=== PATIENT | female | born 1945 | race Caucasian/White ===

== ENCOUNTER → 2017-09-13 | Outpatient (CLI) | payer BC ==
[~2017-09-13] MED LIST: AMLO-96 PO; AMOX-559 PO; ASPI-1471 PO; DOCU-416 PO; GLUC1TAB13 PO; LEVO-3 PO; METO50TA19 PO; METR-1 PO; MV W1TAB4 PO; PER PO; POTA99TA6 PO; SIMV-54 PO; VIT1CAPS34 PO; [UNRECOGNIZED DRUG - CODE] PO
--- NOTE | 2017-09-13 16:38 | RADIOLOGY IMAGING REPORT ---
[place] [facility] [place] NAME: VENESSA HOYOS : [id number] MR: [id number] V: [id number] EXAM DATE: ORDERING PHYSICIAN: DAYTON ABEL TECHNOLOGIST: Chiquita Huffman PROCEDURE:BILATERAL DIGITAL SCREENING MAMMOGRAM WITH CAD ASSISTED INTERPRETATION & 3D TOMOSYNTHESIS COMPARISON:Prior mammograms 08/23/16, 03/02/15, 07/16/12, 05/31/11. INDICATIONS:SCREENING FINDINGS: A small amount of fibroglandular tissue is seen throughout the breasts. The parenchymal pattern has remained stable allowing for difference in mammographic technique & patient positioning. There is no evidence of malignant appearing mass, malignant appearing calcifications or other secondary sign of malignancy in either breast. DIAGNOSTIC CATEGORY 1--NEGATIVE. RECOMMENDATIONS: ROUTINE MAMMOGRAM AND CLINICAL EVALUATION. IMPRESSION: BIRADS 1: Negative No significant abnormality is seen. Dictated by: Yudelka Thomason M.D. on 09/13/2017 at 16:16 Transcribed by: ANY on 09/13/2017 at 16:28 Approved by: Yudelka Thomason M.D. on 09/13/2017 at 16:37 [facility]
== END ==
LOC: MAMO 01:40
PROVIDERS: ATTEND Student in an Organized Health Care Education/Training Program
DX: Z12.31 Encounter for screening mammogram for malignant neoplasm of breast (principal)
CPT/HCPCS: 77063; 77067

== ENCOUNTER → 2018-04-23 | Outpatient (CLI) | payer BC, MEDICARE ==
[~2018-04-23] MED LIST changes: +AMLO-111 PO; -AMLO-96 PO
[2018-04-23 09:55] LABS: PLATELET COUNT, AUTOMATED 255 K/uL (150-450)
--- NOTE | 2018-04-23 09:55 | EKG ---
FACILITY: [facility] PATIENT NAME: VENESSA HOYOS : [id number] MR: [id number] V: [id number] EXAM DATE: ORDERING PHYSICIAN: LY SETHI TECHNOLOGIST: BRIDGET Test Reason : PRE OP Blood Pressure : / mmHG Vent. Rate : 058 BPM Atrial Rate : 058 BPM P-R Int : 188 ms QRS Dur : 074 ms QT Int : 434 ms P-R-T Axes : 048 016 043 degrees QTc Int : 426 ms Sinus bradycardia Otherwise normal ECG When compared with ECG of 16-JUL-2013 00:21, No significant change was found Confirmed by NICHOLAS DAVIDSON ([id number]) on 04/23/2018 6:03:12 PM Referred By: JOSSIE Confirmed By:NICHOLAS DAVIDSON
== END ==
LOC: LAB 09:31
PROVIDERS: ATTEND Orthopaedic Surgery
DX: Z01.812 Encounter for preprocedural laboratory examination (principal); Z01.810 Encounter for preprocedural cardiovascular examination; M19.071 Primary osteoarthritis, right ankle and foot; R00.1 Bradycardia, unspecified
CPT/HCPCS: 36415; 82040; 82247; 82310; 82374; 82435; 82565; 82947; 84075; 84132; 84155; 84295; 84443; 84450; 84460; 84520; 85025; 93005

== ENCOUNTER 2018-05-31 00:34 | Inpatient (IN) | payer MEDICARE, BC ==
[2018-05-31] VITALS (22 sets, daily range): BP systolic 112–151; BP diastolic 58–82
[~2018-05-31] VITALS: Ht 167.6 cm; Wt 101.2 kg
[~2018-05-31 00:34] MED LIST changes: +SIMV-49 PO
[2018-05-31] MEDS ORDERED: PREGABALIN 75 MG CAPSULE PO ONE (06:15)
[2018-05-31] MEDS ORDERED: NORMOSOL R SOLN(*) 1000 ML BAG 1,000 ML IV PRN (06:15)
[2018-05-31] MEDS ORDERED: LIDOCAINE/SOD BICARB 8.4% SYR ID ONE (06:15)
[2018-05-31] MEDS ORDERED: ACETAMINOPHEN 500 MG TAB PO ONE (06:15)
[2018-05-31] MEDS ORDERED: ROPIVACAINE 0.2% 400 MG/200ML 250 ML CONINFUS ONE (06:15)
[2018-05-31] MEDS ORDERED: FAMOTIDINE 20 MG TAB PO ONE (06:15)
[2018-05-31] MEDS ORDERED: ceFAZolin(*) 2GM/D5W 50ML 50 ML IVPB ONE (06:15)
[2018-05-31] MEDS ORDERED: MIDAZOLAM 2 MG/2 ML VIAL IVP PRN (06:15)
[2018-05-31] MEDS ORDERED: EPINEPHrine HCL 1 MG/ML AMP ONE (06:31)
[2018-05-31] MEDS ORDERED: DEXAMETHASONE SOD PHOS 10MG/ML ONE (06:31)
[2018-05-31] MEDS ORDERED: ROPIVACAINE 0.5% 20 ML VIAL ONE (06:53)
[2018-05-31] MEDS ORDERED: SCOPOLAMINE 1.5 MG PATCH TD ONE (06:55)
[2018-05-31] MEDS ORDERED: fentaNYL CITR 250 MCG/5 ML AMP ONE (06:57)
[2018-05-31] MEDS ORDERED: LIDOCAINE 2% IV 100 MG/5ML SYR ONE (06:57)
[2018-05-31] MEDS ORDERED: PROPOFOL EMUL(*) 10MG/ML 20 ML 20 ML ONE (06:57)
[2018-05-31] MEDS ORDERED: LIDOCAINE MPF 1% 5 ML VIAL ONE (06:58)
[2018-05-31] MEDS ORDERED: DEXAMETHASONE SOD 4 MG/ML VIAL ONE (07:26)
[2018-05-31] MEDS ORDERED: ONDANSETRON 4 MG/2 ML VIAL ONE ×2 (07:27→10:46)
[2018-05-31] MEDS ORDERED: KETAMINE HCL 200 MG/20 ML MDV ONE ×2 (07:28→08:42)
[2018-05-31] MEDS ORDERED: fentaNYL CITR 100 MCG/2 ML AMP ONE (09:20)
--- NOTE | 2018-05-31 10:06 | RADIOLOGY IMAGING REPORT ---
FACILITY: [facility] PATIENT NAME: Dbebie Damian : 1945 MR: [id number] V: [id number] EXAM DATE: ORDERING PHYSICIAN: LY SETHI TECHNOLOGIST: Location: [facility] Patient: Debbie Damian : 1945 Visit/Account:[id number] Date of Sevice: 05/31/2018 EXAMINATION: OR fluoroscopy films right ankle 4 views HISTORY: Right total ankle replacement. COMPARISON: None. FLUOROSCOPY TIME: 1:48 minutes. DOSE: DAP was 0.3881 Gy*cm2. FINDINGS: 4 fluoroscopic images of the right ankle are obtained intraoperatively. There is placemen t of a total ankle arthroplasty which is well-positioned on these images. IMPRESSION: Right total ankle arthroplasty in progress. Please see the performing physician's notes for full det ails. Report Dictated By: Funmi Rudd MD at 05/31/2018 10:01 AM Report E-Signed By: Funmi Rudd MD at 05/31/2018 10:02 AM WSN:[id number]
[2018-05-31] MEDS ORDERED: BISACODYL 10 MG SUPP PR PRN (10:15)
[2018-05-31] MEDS ORDERED: diphenhydrAMINE 25 MG CAP PO PRN (10:15)
[2018-05-31] MEDS ORDERED: KCL/D5LR 20 MEQ/1000 ML PREMIX 1,000 ML IV PRN (10:15)
[2018-05-31] MEDS ORDERED: ONDANSETRON 4 MG/2 ML VIAL IVP PRN (10:15)
[2018-05-31] MEDS ORDERED: PROMETHAZINE 25 MG/ML 1 ML AMP IVP PRN (10:15)
[2018-05-31] MEDS ORDERED: FLUSH 10 ML SYR IVP PRN (10:15)
[2018-05-31] MEDS ORDERED: MAGNESIUM HYDROXIDE* 30ML UDCP PO PRN (10:15)
[2018-05-31] MEDS ORDERED: KETOROLAC 30 MG/ML VIAL IVP PRN (10:15)
[2018-05-31] MEDS ORDERED: ACETAMINOPHEN 500 MG TAB PO PRN (10:15)
[2018-05-31] MEDS ORDERED: MAGNESIUM CITRATE 300 ML BTL PO PRN (10:15)
--- NOTE | 2018-05-31 10:53 | OPERATIVE REPORT 1 ---
EVENT DATE: May 31, 2018 SURGEON: Jarret Tesfaye MD ANESTHESIOLOGIST: Mert Stoll MD ANESTHESIA: restaurant line cook: LISA Farris, MOTEL KEEPER PREOPERATIVE DIAGNOSIS Severe degenerative arthritis of the ankle. POSTOPERATIVE DIAGNOSIS Severe degenerative arthritis of the ankle. PROCEDURE PERFORMED Total ankle replacement on the right side. ESTIMATED BLOOD LOSS Minimal. TOURNIQUET TIME Less than 2 hours. DESCRIPTION OF PROCEDURE The patient was brought to the operating room and placed in supine position. A bump placed under the right hip. The right lower extremity was prepped and draped in the normal sterile fashion using Prevail. A sterile stockinette, sterile U-drape, and sterile extremity drape placed over the lower extremity. Stockinette was incised right above the knee and held with Coban. Esmarch was then used to exsanguinate the lower extremity. The tourniquet was turned up to 300 mmHg. An incision was made directly midline just lateral to the anterior tibialis tendon. Skin was incised with the blade and taken down to the subcutaneous tissue. The subcutaneous tissue was bluntly dissected down to the retinaculum. The retinaculum was sharply dissected and then blunt dissection was taken down to the bone to move the neurovascular bundle off to the lateral aspect. Once that was moved off laterally and the anterior tibialis tendon was protected medially, we were able to get to the bone. We did subperiosteal dissection medially and laterally. Once that was done, we then removed the osteophytes on the anterior tibialis and the neck of the talus. At this point, we used an osteotome to transect the anterior tibial rim to get down to distal plafond of the tibia. Once I had that done, we then made an incision just over the tibial tubercle, bluntly dissected down to the bone. We placed a pin all the way through the tibia and then we used our alignment guide, placed the alignment guide on that proximal tibial pin, brought it all the way down to the tibial plafond. I placed another pin through the medial hole into the tibia. Once we had that lined up, we brought fluoroscopy in. We moved from a zero up to a 9 mm cut shortening the alignment kaitlyn. Once that was appropriate, fluoroscopy was used to made sure we had rotation appropriate, make sure we had enough length off the tibia taken which we thought we did. We did have to realign the varus valgus of the alignment guide, getting slightly more valgus and we had the tip a little bit more posterior alignment. Once that was done, we thought we had excellent position. We then went for sizing. We tried a 1 tibia and a zero tibia. It was right in between, so we decided to go for a zero tibia to start and then wee could always go up if we needed to. We placed the zero tibial guide on there, made sure with fluoroscopy AP and lateral that the cut was appropriate, both medially, laterally and rotationally, which it was. We pinned both medial and lateral of the zero guide, and then cut the distal tibia using a oscillating saw without any difficulty. We were able to pull the pins, pull the sizing and distal tibial guide off. I used an osteotome to remove the majority of the distal tibial cut. Once that was done, from the alignment guide we were able to place our talar pin, with the foot in neutral making sure the pin was placed in the talus in the correct position. We brought fluoroscopy in, found to have an excellent placement of the pin in relationship to the subtalar joint. Once that was done, we then placed our paddles for the distal talar cut for a zero. Once we had it in place, we brought fluoroscopy in and made the paddles were appropriate and the alignment was appropriate. We then pinned the talar cutting guide. We then used an oscillating saw to cut the talus without any difficulty. We removed the talar guide, we removed the pins, we removed the distal talus. From here, I could get back to the rest of the distal tibial cut, which I was able to remove without any difficulty. At this point, we removed the spurs of the anterior talus, even some more. We placed the anterior chamfer cut under fluoroscopy and made sure we had good position of it. When we did have positioning of it, making sure the guide line hit to the anterior tibia which was appropriate, we then pinned that anterior chamfer guide. We then drilled our anterior chamfer without any difficulty. I took of the anterior chamfer guide, and I used a rongeur to remove the remaining anterior chamfer cuts. Once that was done, we then trialed a zero tibia and a zero talus under fluoroscopy and at this point we realized that could go up on the tibia, so we then trialed a 1 tibia with a zero talus which fit more appropriately. Had good range of motion, but I though we could get some more with a Achilles tendon lengthening. We did a percutaneous Achilles tendon lengthening at this point, three holes were made on the back of the Achilles, one going medial, one going lateral, and one going medial again. From here, we gut much better range of motion and it felt like the tibial was sitting in a better position as well. We then drilled the talus, lateral chamfer guide in place. We drilled the distal tibial guides first with the large, thin drill hole. We removed the tibial trial, finished our lateral chamfer without any difficulty, removed the lateral chamfer talar guide, removed the bone over the lateral chamfer, and had excellent position. At this point, we decided to go with a 1 tibia, a 10 poly, and a zero talus of a Juve Integra total ankle. We then washed out with normal saline and then we were able to place the distal tibia and the talus in the appropriate position, checking on fluoroscopy the final positioning which was excellent, good alignment varus/valgus, rotation, and anterior and lateral. At this point, we then washed out with normal saline. We closed the retinaculum, closed the subcuticular over top using 3-0 Monocryl, and then used mat for the skin. We were able to remove all of the rest of pins in the distal tibia without any difficulty. Adaptic 4 x 4's, big bulky Weldon dressing. Patient went to recovery and no complications. COLE
[2018-05-31] MEDS ORDERED: CALC600T63 PO (12:08)
[2018-05-31] MEDS ORDERED: ASCO-191 PO (12:08)
[2018-05-31] MEDS ORDERED: CHOL100052 PO (12:08)
[2018-05-31] MEDS ORDERED: LEV125 PO (12:08)
--- NOTE | 2018-05-31 15:15 | Hospitalist Consultation ---
History of Present Illness Requesting Physician Dr. Tesfaye Reason for Consult Manage medical problems/chronic medications. Chief Complaint R ankle pain. History of Present Illness The patient is a pleasant 72 year old female with PMH significant for HTN, hypothyroidism and hyperlipidemia who presented to Dr. Tesfaye with R ankle pain. She had an ankle injury 30 years ago and felt it never healed properly. Over the years her pain worsened and the joint became unstable. She did undergo injection with Kenalog with minimal relief of her symptoms. 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 She subsequently had both knees replaced (late and early ) without any difficulty. She does not remember being on blood thinners for those surgeries but review of the records show she was placed on Coumadin postoperatively for her 2001 TKA. The patient underwent total R ankle replacement earlier today with Dr. Tesfaye. She is doing well postoperatively. History Problems: (1) History of carpal tunnel release Status: Resolved (2) History of tubal ligation Status: Resolved (3) History of total knee replacement (TKR) Status: Resolved (4) Hx of appendectomy Status: Resolved (5) Pulmonary embolism Status: Resolved (6) Degenerative joint disease of ankle, right Status: Chronic (7) Hypothyroidism Status: Chronic (8) Hyperlipidemia Status: Chronic (9) HTN (hypertension) Status: Chronic Home Meds Reported Medications Ascorbic Acid (VITAMIN C) 1,000 Mg Tablet, 2000 MG PO DAILY 05/31/18 Cholecalciferol (Vitamin D3) (VITAMIN D) 1,000 Unit Tablet, 4000 UNIT PO 05/31/18 Calcium Carbonate (CALCIUM) 600 Mg Tablet, 1200 MG PO DAILY 05/31/18 Levothyroxine Sodium (LEVOTHYROXINE SODIUM) 0.125 Mg Tab, 0.125 MG PO QDAY, TAB 05/31/18 Simvastatin (SIMVASTATIN) 20 Mg Tablet, 20 MG PO HS, TAB 05/22/18 Aspirin (ASPIR 81) 81 Mg Tablet.dr, 81 MG PO QDAY, TAB 07/15/13 Metoprolol Succinate (METOPROLOL SUCCINATE) 50 Mg Tab.er.24h, 1 TAB PO QDAY TAKE ONE TABLET BY MOUTH EVERY DAY 07/15/13 Niacin (SLO-NIACIN) 500 Mg Tablet.er, 500 MG PO DAILY 07/15/13 Glucosamine Hcl/Chondr Yo A Na (OSTEO BI-FLEX CAPLET) 1 Each Tablet, 2 EACH PO DAILY 07/15/13 Potassium Gluconate (POTASSIUM) 99 Mg Tablet, 99 MG PO DAILY 07/15/13 Vit A/Vit C/Vit E/Zinc/Copper (PRESERVISION AREDS SOFTGEL) 1 Each Capsule, 1 EACH PO BID, CAPSULE 07/15/13 Mv W-Ca/Iron/Fa/Lutein/Hrb#179 (KAYLEEN MULTI FOR WOMEN TAB) 1 Each Tablet, 1 EACH PO DAILY 07/15/13 Amlodipine Besylate (AMLODIPINE BESYLATE) 5 Mg Tablet, 1 TAB PO QDAY, TAB TAKE ONE TABLET BY MOUTH EVERY DAY 07/15/13 Discontinued Reported Medications Levothyroxine Sodium (LEVOTHYROXINE SODIUM) 100 Mcg Tablet, 125 MCG PO QDAY, TAB 05/22/18 Allergies: Coded Allergies: No Known Drug Allergies (Unverified , 07/18/13) Patient History: FH: dementia MOTHER FH: kidney failure FATHER, Hx Smoking: No Smoking Status: Never Smoker Caffeine Intake: Coffee Caffeine/Cups Per Day: 2 CCD Hx Alcohol Use: No Alcohol Used: Wine Hx Substance Use Disorder: No Review of Systems All Systems Reviewed/Normal: Yes, Except as Noted Musculoskeletal: Pain ( R ankle.) Exam Vital Signs Vital Signs Date Time Temp Pulse Resp B/P (MAP) Pulse Ox O2 Delivery O2 Flow Rate FiO2 05/31/18 12:30 150/70 (96) 05/31/18 12:15 48 96 05/31/18 11:38 Nasal Cannula 4.0 05/31/18 11:35 97.5 16 General Appearance: Alert, Awake, No Acute Distress, Afebrile Neuro: No Gross deficits Eyes: PERRLA Cardiovascular: Other (Bradycardic with soft JOANNA heard at RUSB) Respiratory: Clear to Auscultation GI: Abd Soft and Non-Tender Extremities: Warm, Perfused, Other (R lower leg bandaged. Toes pink with good capillary refill.) Integumentary: Other (R ankle bandaged) Psych: Alert & Oriented X3, Appropriate Mood & Affect Medical Decision Making Pre-Admit Course Medical Record Review: Yes Assessment and Plan Problems: (1) S/P ankle joint replacement Status: Acute Assessment & Plan: The patient is doing well postoperatively. See Dr. Tesfaye's notes for complete details regarding the surgery. Discussed patient history of PE with Dr. Tesfaye. He agrees that this patient should have some protection postoperatively for DVT prophylaxis due to previous hx of PE. She is usually on a baby ASA daily. Will have her take a regular aspirin daily for a month. (2) HTN (hypertension) Status: Chronic Assessment & Plan: Continue amlodipine and metoprolol with BP parameters. (3) Hypothyroidism Status: Chronic Assessment & Plan: Continue levothyroxine at 0.125mg daily. TSH drawn 05/30/18 was 0.69. Her dose was increased from 0.100mg in April after a TSH drawn 04/23/18 was elevated at 5.93. (4) Hyperlipidemia Status: Chronic Assessment & Plan: Continue simvastatin 40mg at HS. (5) Pulmonary embolism Status: Resolved Assessment & Plan: The patient has history of PE in 1967 after prolonged immobilization for fracture of her back. [facility] she was placed on Coumadin after her 2001 knee replacement. DVT prophylaxis is not usually warranted after ankle replacement surgery, however, due to past hx of DVT, will have her take a regular 325mg ASA daily for one month and then she can return to her usual low dose ASA 81mg daily. Time Spent on Plan of Care: < 30 min Venous Thromboembolism Antithrombotics Is Pt On Any Antithrombotics?: Yes (Aspirin 325mg daily.) Exam Sepsis Risk: No Definite Risk Problem Qualifiers (1) S/P ankle joint replacement: Laterality: right Qualified Codes: Z96.661 - Presence of right artificial ankle joint SANG POSEY MD May 31, 2018 15:15
[2018-05-31] MEDS: ceFAZolin(*) 1 GM VIAL 1 GM in NS(*) 0.9% 100 ML ADDVANT BAG 100 ML IVPB SCH (17:38)
[2018-05-31] MEDS ORDERED: SIMVASTATIN 40 MG TAB PO SCH (21:00)
[2018-06-01] MEDS: ceFAZolin(*) 1 GM VIAL 1 GM in NS(*) 0.9% 100 ML ADDVANT BAG 100 ML IVPB SCH ×2 (00:56→09:31)
[2018-06-01 03:57] VITALS: BP 137/64
[2018-06-01] MEDS ORDERED: LEVOTHYROXINE SOD 0.125 MG TAB PO SCH (06:00)
[2018-06-01 07:17] VITALS: BP 131/55
--- NOTE | 2018-06-01 07:38 | Hospitalist Progress Note ---
Subjective Progress Notes Subjective The patient states her R foot remains numb. She can feel cold sensation only. Otherwise she is doing well. Physical Exam Vital Signs Date Time Temp Pulse Resp B/P (MAP) Pulse Ox O2 Delivery O2 Flow Rate FiO2 06/01/18 07:17 98.2 51 16 131/55 (80) 96 Nasal Cannula 1.0 Intake and Output 06/01/18 07:00 Intake Total 2210 ml Balance 2210 ml Intake Oral 810 ml IV Total 1400 ml # Voids 4 General Appearance: Alert, Awake, No Acute Distress, Afebrile Neuro: No Gross deficits Cardiovascular: Regular Rate and Rhythm Respiratory: Clear to Auscultation GI: Soft and Non-Tender Extremities: Warm, Perfused, Other (R lower leg in heavy bandage/cast. Toes pink, warm with good capillary refill.) Integumentary: Other (Bandage over surgical site, R ankle.) Psych: Alert & Oriented X3, Appropriate Mood & Affect Assessment and Plan Problems: (1) S/P ankle joint replacement Status: Acute Assessment & Plan: The patient is doing well postoperatively. See Dr. Tesfaye's notes for complete details regarding the surgery. Discussed patient history of PE with Dr. Tesfaye. He agrees that this patient should have some protection postoperatively for DVT prophylaxis due to previous hx of PE. She is usually on a baby ASA daily. Will have her take a regular aspirin daily for a month. (2) HTN (hypertension) Status: Chronic Assessment & Plan: Continue amlodipine and metoprolol with BP parameters. (3) Hypothyroidism Status: Chronic Assessment & Plan: Continue levothyroxine at 0.125mg daily. TSH drawn 05/30/18 was 0.69. Her dose was increased from 0.100mg in April after a TSH drawn 04/23/18 was elevated at 5.93. (4) Hyperlipidemia Status: Chronic Assessment & Plan: Continue simvastatin 40mg at HS. (5) Pulmonary embolism Status: Resolved Assessment & Plan: The patient has history of PE in 1967 after prolonged immobilization for fracture of her back. Per [facility] records, she was placed on Coumadin after her 2001 knee replacement. DVT prophylaxis is not usually warranted after ankle replacement surgery, however, due to past hx of DVT, will have her take a regular 325mg ASA daily for one month and then she can return to her usual low dose ASA 81mg daily. (6) Postoperative hypoxia Status: Acute Assessment & Plan: O2 requirements are gradually improving. Will continue to monitor. May need O2 for a short period at discharge. Exam Sepsis Risk: No Definite Risk Problem Qualifiers (1) S/P ankle joint replacement: Laterality: right Qualified Codes: Z96.661 - Presence of right artificial ankle joint SANG POSEY MD Jun 01, 2018 07:38
[2018-06-01] MEDS ORDERED: ASPI-764 PO (07:42)
[2018-06-01] MEDS ORDERED: amLODIPine BESYL(*) 5 MG TAB PO SCH (09:00)
[2018-06-01] MEDS ORDERED: NIACIN 500 MG SR TAB PO SCH (09:00)
[2018-06-01] MEDS ORDERED: DOCUSATE SODIUM 100 MG CAP PO SCH (09:00)
[2018-06-01] MEDS ORDERED: METOPROLOL SUCC XL 50 MG TABCR 50 MG TAB.ER.24H PO SCH (09:00)
[2018-06-01] MEDS ORDERED: ASPIRIN 325 MG ENTERIC COATED PO SCH (09:00)
[2018-06-01 09:27] VITALS: BP 141/81
--- NOTE | 2018-06-01 11:56 | NUR ---
Physical Therapy Impression While OOB pt SpO2 dropped to 85-86% on RA. With standing breaks and cuing for increased breathing, O2 feliciano to 90's. Pt. successfully ascended/descended 1 [address] stair with use of FWW, Servando x1 and backwards technique. Pt. and spouse also educated on use of a chair with sit technique as there is only one platform step at their home. Pt. will benefit from this technique as decreased UE strength is a limiting factor in transfer ability. Pt. is safe for d/c to home with spouse assistance. Physical Therapy Goals Pt. planning to d/c home at this time. Patient's Goals
--- NOTE | 2018-06-01 11:58 | NUR ---
pt room air sat of 85 percent while up and ambulating with PT Addendum: 06/01/18 at 1159 by LOUIE PONCE RN Amended: Links added.
[2018-06-01 12:48] VITALS: BP 186/78
[2018-06-01 14:25] VITALS: BP 200/90
[2018-06-01 15:06] VITALS: BP 204/90
== END 2018-06-01 09:58 | disposition home or self-care (01) | DRG 469 ==
LOC: OR 00:34 → MED 11:30 → OBSVTOIN 11:30
PROVIDERS: ADMIT Orthopaedic Surgery; ATTEND Orthopaedic Surgery
PROC: 0SRF0JA Replacement of Right Ankle Joint with Synthetic Substitute, Uncemented, Open Approach (ICD-10-PCS; principal; 2018-05-31 07:07)
DX: M19.071 Primary osteoarthritis, right ankle and foot (principal); I10 Essential (primary) hypertension; R09.02 Hypoxemia; Z86.718 Personal history of other venous thrombosis and embolism; Z86.711 Personal history of pulmonary embolism; E66.9 Obesity, unspecified; E03.9 Hypothyroidism, unspecified; E78.5 Hyperlipidemia, unspecified; Z68.36 Body mass index [BMI] 36.0-36.9, adult; Z96.653 Presence of artificial knee joint, bilateral; Z79.82 Long term (current) use of aspirin
CPT/HCPCS: 76000; 76942; 97162; C1776; G0378; J0171; J0690; J1100; J2001; J2250; J2405; J2550; J2704; J2795; J3010; J3490; J7050